=== PATIENT | female | born 1955 | race Caucasian/White ===

== ENCOUNTER → 2017-08-07 09:52 | Outpatient (CLI) | payer MEDICARE, SELFPAY ==
[2017-08-07 12:41] LABS: Anion Gap 8 (5-15); BUN 11 mg/dL (7-18); BUN/Creat Ratio 15.6 RATIO (10-20); Calcium,Total 8.6 mg/dL (8.5-10.1); Chloride 109 mmol/L (98-107); Cholesterol 168 mg/dL (200); Creatinine, Serum 0.71 mg/dL (0.55-1.02); EST Glomerular Filtration Rate 89 mL/min (>60); Est Glom Filt Rate - Afr Amer 108 mL/min (>60); Glucose 88 mg/dL (74-106); High Density Lipoprotein 55 mg/dL; Potassium 3.9 mmol/L (3.5-5.1); Sodium Level 144 mmol/L (136-145); Triglycerides 159 mg/dL; Very Low Density Lipoprotein 32 mg/dL (5-40)
== END ==
PROVIDERS: Family Provider Family Medicine; PCP Family Medicine; Visit Provider Family Medicine
DX: I10 Essential (primary) hypertension (principal)
CPT/HCPCS: 36415; 80048; 80061

== ENCOUNTER → 2018-02-09 09:40 | Outpatient (CLI) | payer MEDICARE, SELFPAY ==
[2018-02-09 12:39] LABS: Anion Gap 8 (5-15); BUN 16 mg/dL (7-18); BUN/Creat Ratio 23.7 RATIO (10-20); Calcium,Total 8.2 mg/dL (8.5-10.1); Chloride 110 mmol/L (98-107); Cholesterol 155 mg/dL (200); Creatinine, Serum 0.67 mg/dL (0.55-1.02); EST Glomerular Filtration Rate 94 mL/min (>60); Est Glom Filt Rate - Afr Amer 114 mL/min (>60); Glucose 93 mg/dL (74-106); High Density Lipoprotein 66 mg/dL; Potassium 4.1 mmol/L (3.5-5.1); Sodium Level 142 mmol/L (136-145); Triglycerides 81 mg/dL; Very Low Density Lipoprotein 16 mg/dL (5-40)
== END ==
PROVIDERS: Family Provider Family Medicine; PCP Family Medicine; Visit Provider Family Medicine
DX: I10 Essential (primary) hypertension (principal)
CPT/HCPCS: 36415; 80048; 80061

== ENCOUNTER → 2018-04-15 10:08 | Outpatient (CLI) | payer MEDICARE, SELFPAY ==
--- NOTE | 2018-04-15 10:13 | BI_ITS ---
MAMMOGRAPHY - BILATERAL SCREENING REASON FOR EXAM: Female, 62 years old. Routine annual screening examination. PERTINENT HISTORY: Non-contributory. TECHNIQUE: Digital bilateral breast sean (3D mammographic acquisition) in the CC and MLO projections. 2-D mediolateral oblique (MLO) and craniocaudad (CC) views of both breasts were obtained. CAD: Full Field Digital Mammography with Computer Added Detection was performed. COMPARISON: Comparison is made with prior study dated March 12, 2016 and March 12, 2012. FINDINGS: Breast Composition: The breasts are almost entirely fatty. There are no dominant masses or suspicious calcifications. Stable benign-appearing bilateral axillary lymph nodes. No other significant abnormalities are identified. There has been no significant change since the prior study. BI/SCREENING MAMM (CAD), BILAT IMPRESSION: Stable bilateral screening mammogram. Yearly follow-up mammogram recommended. (A) ASSESSMENT CATEGORY: BIRADS Category 2: Benign. A letter regarding these results will be sent to the patient by the facility within 30 days. Approximately 10% of breast cancers are not detected by mammography. A normal mammogram should not delay biopsy of a clinically suspicious abnormality. [id number] Electronically Signed: Charles Santillan MD at 12:13 EST , Service support ,
--- NOTE | 2018-04-15 10:17 | BD_ITS ---
STUDY: DUAL ENERGY X-RAY ABSORPTIOMETRY / DXA REASON FOR EXAM: Female, 62 years old. The patient is postmenopausal. TECHNIQUE: Bone Mineral Density (BMD) measurements of lumbar spine and bilateral hips were obtained. COMPARISON: Comparison is made with prior study dated March 12, 2016. FINDINGS: Lumbar Spine (L1-L4): g/cm2 (0.968) / T-score (-1.8) / Z-score (-0.4) Findings are suggestive of osteopenia with a moderate fracture risk. Left Femur Total: g/cm2 (0.812) / T-score (-1.6) / Z-score (-0.5) Left Femoral Neck: g/cm2 (0.746) / T-score (-2.1) / Z-score (-0.7) Right Femur Total: g/cm2 (0.886) / T-score (-1.0) / Z-score (0.1) Right Femoral Neck: g/cm2 (0.757) / T-score (-2.0) / Z-score (-0.7) The T-Scores on the most recent prior examination were: Lumbar Spine (L1-L4): There has been worsening of bone density since the previous examination. Left Femur Total: which represents a worsening of 4.7%. Right Femur Total: which represents a worsening of 1.3%. BD/Dexa Bone Density Study IMPRESSION: The patient is considered osteopenic as outlined below according to World Bradley Organization (WHO) criteria with a moderate fracture risk. There has been worsening of bone density since the previous examination. Reference Information: The T-score is the number of standard deviations above or below the standard which is normal for young adults at their peak bone mineral density. The World Health Organization (WHO) interprets the T-scores as follows: Above -1 Normal bone density Between -1 and -2.5 Osteopenia Equal to / or below -2.5 Osteoporosis As a practical clinical guideline, osteopenia may be graded as follows: Mild -1 through -1.5 Moderate -1.6 through -2.0 Severe -2.1 through -2.4 The Z-score is the number of standard deviations above or below age-matched controls. A Z-score of less than -1.5 would be considered abnormal. References: 1. NIH Osteoporosis and Related Bone Diseases http://www.osteo.org 2. International Society for Clinical Densitometry http://www.iscd.org 3. National Osteoporosis Foundation http://www.nof.org Electronically Signed: Charles Santillan MD at 12:37 EST , Service support ,
== END ==
PROVIDERS: Family Provider Family Medicine; PCP Family Medicine; Referring Provider Family Medicine; Visit Provider Family Medicine
DX: Z00.00 Encounter for general adult medical examination without abnormal findings (principal); Z12.31 Encounter for screening mammogram for malignant neoplasm of breast; Z78.0 Asymptomatic menopausal state
CPT/HCPCS: 77063; 77067; 77080

== ENCOUNTER → 2018-11-25 09:46 | Outpatient (CLI) | payer MEDICARE, SELFPAY ==
[2018-11-25 12:29] LABS: Carbamazepine (Tegretol) 8.1 ug/mL (4.0-12.0)
[2018-11-25 12:36] LABS: Anion Gap 6 (5-15); BUN 12 mg/dL (7-18); Calcium,Total 8.6 mg/dL (8.5-10.1); Chloride 109 mmol/L (98-107); Cholesterol 195 mg/dL (200); Creatinine, Serum 0.67 mg/dL (0.55-1.02); EST Glomerular Filtration Rate 95 mL/min (>60); Est Glom Filt Rate - Afr Amer 115 mL/min (>60); Glucose 95 mg/dL (74-106); High Density Lipoprotein 62 mg/dL; Potassium 3.9 mmol/L (3.5-5.1); Sodium Level 143 mmol/L (136-145); Triglycerides 218 mg/dL; Very Low Density Lipoprotein 44 mg/dL (5-40)
== END ==
PROVIDERS: Family Provider Family Medicine; PCP Family Medicine; Referring Provider Family Medicine; Visit Provider Family Medicine
DX: I10 Essential (primary) hypertension (principal); F32.9 Major depressive disorder, single episode, unspecified
CPT/HCPCS: 36415; 80048; 80061; 80156

== ENCOUNTER → 2019-12-01 09:51 | Outpatient (CLI) | payer MEDICARE, SELFPAY ==
[2019-12-01 12:36] LABS: Anion Gap 5 (5-15); BUN 15 mg/dL (7-18); BUN/Creat Ratio 20.1 RATIO (10-20); Calcium,Total 8.7 mg/dL (8.5-10.1); Chloride 107 mmol/L (98-107); Cholesterol 203 mg/dL (200); Creatinine, Serum 0.75 mg/dL (0.55-1.02); EST Glomerular Filtration Rate 83 mL/min (>60); Est Glom Filt Rate - Afr Amer 100 mL/min (>60); Glucose 99 mg/dL (74-106); High Density Lipoprotein 62 mg/dL; Potassium 3.7 mmol/L (3.5-5.1); Sodium Level 140 mmol/L (136-145); Thyroid Stim Hormone (TSH) 2.43 uIU/mL (0.358-3.74); Triglycerides 209 mg/dL; Very Low Density Lipoprotein 42 mg/dL (5-40)
[2019-12-01 12:58] LABS: Carbamazepine (Tegretol) 9.2 ug/mL (4.0-12.0)
== END ==
PROVIDERS: PCP Family Medicine; Referring Provider Family Medicine; Visit Provider Family Medicine
DX: R63.5 Abnormal weight gain (principal); I10 Essential (primary) hypertension; F32.9 Major depressive disorder, single episode, unspecified
CPT/HCPCS: 36415; 80048; 80061; 80156; 84443

== ENCOUNTER → 2020-05-31 09:25 | Outpatient (CLI) | payer MEDICARE, SELFPAY ==
[2020-05-31 11:24] LABS: Anion Gap 7 (5-15); BUN 10 mg/dL (7-18); BUN/Creat Ratio 13.9 RATIO (10-20); Calcium,Total 8.7 mg/dL (8.5-10.1); Chloride 107 mmol/L (98-107); Cholesterol 196 mg/dL (200); Creatinine, Serum 0.72 mg/dL (0.55-1.02); EST Glomerular Filtration Rate 87 mL/min (>60); Est Glom Filt Rate - Afr Amer 105 mL/min (>60); Glucose 108 mg/dL (74-106); High Density Lipoprotein 65 mg/dL; Potassium 3.7 mmol/L (3.5-5.1); Sodium Level 140 mmol/L (136-145); Triglycerides 242 mg/dL; Very Low Density Lipoprotein 48 mg/dL (5-40)
== END ==
PROVIDERS: PCP Family Medicine; Referring Provider Family Medicine; Visit Provider Family Medicine
DX: I10 Essential (primary) hypertension (principal)
CPT/HCPCS: 36415; 80048; 80061

== ENCOUNTER → 2020-05-31 13:12 | Outpatient (CLI) | payer MEDICARE, SELFPAY ==
--- NOTE | 2020-05-31 13:15 | BI_ITS ---
MAMMOGRAPHY - BILATERAL SCREENING REASON FOR EXAM: Female, 64 years old. Routine annual screening examination. PERTINENT HISTORY: Non-contributory. TECHNIQUE: Digital bilateral breast shahnaz (3D mammographic acquisition) in the CC and MLO projections. 2-D mediolateral oblique (MLO) and craniocaudad (CC) views of both breasts were obtained. CAD: Full Field Digital Mammography with Computer Added Detection was performed. COMPARISON: Comparison is made with prior study dated 04/15/2018. FINDINGS: Breast Composition: There are scattered areas of fibroglandular density. There are no dominant masses or suspicious calcifications. Stable benign-appearing bilateral axillary lymph nodes. No other significant abnormalities are identified. There has been no significant change since the prior study. BI/SCRN MAMM (CAD)W/SHAHNAZ BILAT IMPRESSION: Stable bilateral screening mammogram. Yearly follow-up mammogram recommended. (A) ASSESSMENT CATEGORY: BIRADS Category 2: Benign. A letter regarding these results will be sent to the patient by the facility within 30 days. Approximately 10% of breast cancers are not detected by mammography. A normal mammogram should not delay biopsy of a clinically suspicious abnormality. [id number] Electronically Signed: Charles Santillan MD at 14:49 EDT , Service support ,
== END ==
PROVIDERS: PCP Family Medicine; Referring Provider Family Medicine; Visit Provider Family Medicine
DX: Z12.31 Encounter for screening mammogram for malignant neoplasm of breast (principal); I10 Essential (primary) hypertension
CPT/HCPCS: 36415; 77063; 77067; 80048; 80061

== ENCOUNTER → 2020-07-24 15:59 | Outpatient (CLI) | payer MEDICARE, SELFPAY ==
--- NOTE | 2020-07-24 16:01 | RAD_ITS ---
STUDY: X-RAY - RIGHT WRIST REASON FOR EXAM: Female, 65 years old. INJURY TECHNIQUE: 3 view(s) of the wrist were obtained. COMPARISON: None. FINDINGS: Cast application. Well aligned distal radius fracture. No acute dislocation. No acute cortical destruction. Limited soft tissue evaluation. RAD/Wrist min 3 Views IMPRESSION: Casted well aligned distal radius fracture Electronically Signed: Chaim Larios DO at 9:32 EDT Tel , Service support ,
== END ==
PROVIDERS: PCP Family Medicine; Referring Provider Family Medicine; Visit Provider Family Medicine
DX: S69.91XA Unspecified injury of right wrist, hand and finger(s), initial encounter (principal)
CPT/HCPCS: 73110

== ENCOUNTER → 2020-08-09 09:17 | Outpatient (CLI) | payer MEDICARE, SELFPAY ==
--- NOTE | 2020-08-09 09:21 | RAD_ITS ---
STUDY: X-RAY - RIGHT WRIST REASON FOR EXAM: Female, 65 years old. RIGHT WRIST INJURY, FOLLOW UP FX TECHNIQUE: 3 view(s) of the wrist were obtained. COMPARISON: None. FINDINGS: Increased impaction of the transverse fracture of the distal metaphysis of the radius and clinical correlation is recommended. Normal radiocarpal articulation. Normal distal radioulnar articulation. Normal carpal bones. Normal carpal articulations. Normal carpometacarpal articulation of the thumb. Normal second through fifth carpometacarpal articulations. Normal visualized metacarpal bones. Fiberglas cast obscures soft tissue and bony detail. RAD/Wrist min 3 Views IMPRESSION: Increased impaction of the transverse fracture the distal metaphysis of the radius and clinical correlation is recommended. Electronically Signed: Tello José MD at 7:50 EDT Tel , Service support ,
== END ==
PROVIDERS: PCP Family Medicine; Referring Provider Family Medicine; Visit Provider Family Medicine
DX: S69.91XA Unspecified injury of right wrist, hand and finger(s), initial encounter (principal)
CPT/HCPCS: 73110

== ENCOUNTER → 2020-11-29 10:30 | Outpatient (CLI) | payer MEDICARE, SELFPAY ==
[2020-11-29 12:35] LABS: Anion Gap 5 (5-15); BUN 12 mg/dL (7-18); BUN/Creat Ratio 16.9 RATIO (10-20); Calcium,Total 8.6 mg/dL (8.5-10.1); Chloride 108 mmol/L (98-107); Cholesterol 172 mg/dL (200); Creatinine, Serum 0.71 mg/dL (0.55-1.02); EST Glomerular Filtration Rate 88 mL/min (>60); Est Glom Filt Rate - Afr Amer 106 mL/min (>60); Glucose 97 mg/dL (74-106); High Density Lipoprotein 68 mg/dL; Potassium 4.1 mmol/L (3.5-5.1); Sodium Level 140 mmol/L (136-145); Triglycerides 118 mg/dL; Very Low Density Lipoprotein 24 mg/dL (5-40)
[2020-11-29 12:36] LABS: Carbamazepine (Tegretol) 9.4 ug/mL (4.0-12.0)
== END ==
PROVIDERS: PCP Family Medicine; Referring Provider Family Medicine; Visit Provider Family Medicine
DX: I10 Essential (primary) hypertension (principal); F31.9 Bipolar disorder, unspecified
CPT/HCPCS: 36415; 80048; 80061; 80156

== ENCOUNTER → 2020-12-27 | Outpatient (CLI) | payer MEDICARE, SELFPAY | END | disposition home or self-care (01) | LOC: LABSPEC 16:22 | PROVIDERS: PCP Family Medicine; Referring Provider Family Medicine; Visit Provider Family Medicine | DX: Z20.822 Contact with and (suspected) exposure to COVID-19 (principal) | CPT/HCPCS: 87635; U0005; U0003 ==

== ENCOUNTER 2021-02-09 12:30 | Outpatient (RCR) | payer MEDICARE, SELFPAY ==
--- NOTE | 2020-09-13 13:41 | HP.OTEVAL_ITS ---
Patient's Visit Information LEILANI CHILEL is a 65 year old F, referred to Occupational Therapy by Dr. Roger Barahona MD, with a diagnosis of distal radial fracture. Date of Evaluation: 09/13/20 Occupational Therapist: Jemma Cervantes, TIFFANIE/Rosario, CHT - Subjective This 65/F was seen today for an OT initial eval after a distal radius fx. She arrived with her wearing a black splint. Pt reported that she fell while on vacation on 07/16/20, and was casted until 08/30/20. She reported pain when she leaned on her elbow and doing certain everyday movements. After removing the splint, the pt pointed out the swelling in her hand and how it has gotten worse since getting the cast off. She - ADLs Eating: Use silverware, Cut food Grooming: Trim nails, Squeeze toothpaste on Kitchen: Chop with knife, Peel fruits & vegetables, Open jars, Ziplock bags, Lift gallon of milk - Pain R wrist 3 Pain Intensity Range: 3, 6 - ROM Forearm: Right sup/pro neutral/WFL Left WFL/WFL Wrist: Right 15*/35* Left 60*/40* MP: Right: 30* IF, 40* MF, 35* RF, 30* LF. Left: 75* IF, 80* MF, 80* RF, 80* LF PIP: Right: 65* IF, 70* MF, 68* RF, 64* LF. Left: 70* IF, 70* MF, 70* RF, 70* LF DIP: Right: 20* IF, 25* MF, 20* RF, 18* LF. Left: 30* IF, 35* MF, 35* RF, 30* LF ROM Comments: Pt was unable to oppose thumb to RF and LF. - Strength Rubber Goods Cutter Finisher: Right: unable, Left: 50# Lateral Pinch: Right: unable, Left: 18# Tripod Pinch: Right: unable, Left: 20# - Edema Wrist: Right: 7.75 in, Left: 7 in PIP: Right MF: 7 in, Left MF: 6 in - Quick DASH-Disab of Arm,Shoulder& Hand Quick DASH Score: 79.5450 - Goals Goal:: In 8 weeks, pt will demonstrate an increase in L grocery packer strength by 35# or greater to return to independence in ADLs and IADLs. In 8 weeks, pt will demonstrate an increase in L pinch strength by 10# or greater to return to independence in ADLs and IADLS. Goal:: pt will demonstrate an increase in R wrist ext/flex by 40*/5* by d/c to be more independent in cooking and cleaning tasks. pt will demonstrate an increase in R wrist supination by at least 60* to be able to receive change by d/c. pt will demonstrate a tight composite fist in R hand to increase independent in ADLs and IADLs by d/c. Goal:: pt will self-report pain 0/10 with use, and 0/10 during the night by d/c. Goal:: pt will demonstrate a decrease in edema in her R palm, wrist, and fingers to measure equal to her L hand to increase ROM by d/c. Goal:: pt will self-report no tingling in her R hand with use by d/c. - Rehabilitation General Assessment: Pt demonstrated limited ROM in her right wrist with cha/pron and flex/ext, and was unable to perform a grocery packer/pinch test due to pain. Pt would demonstrate skilled OT services 2-3x a week 8 weeks to decrease swelling, pain, and increase ROM to be more independence in ADLs and IADLs. Today, therapist took ROM measurements, edema measurements, and grocery packer/pinch strength of her L hand. Therapist also performed trigger point release to promote soft tissue mobility and decrease swelling.Therapy session was directly supervised and doc. approved by Jemma Cervantes OTR/Rosario, CHT. Rehabilitation Potential: Good - Anticipated Interventions A/AAROM/PROM, Strengthening, Edema Control, Triggerpoint Release, Modalities, ADL Training, Home Program - Visit Plan Frequency: 2-3x /Week Duration: 2 Months General Plan: AROM/PROM. Swelling control. ADL training. TEXT: Thank you for the opportunity to evaluate your patient. For Medicare and Medicare HMO plans, please review the plan of care and approve it. It will need to be FAXED BACK to us at [phone] for Medicare purposes. Please let me know if there are questions or concerns regarding this plan of care. Physician Signature: Date:
--- NOTE | 2020-10-03 16:06 | HP.OTREVAL ---
Dr. Roger Barahona MD, It has been my pleasure to treat LEILANI CHILEL over the last 6 visits for distal radial fracture. Please see the progress note below for an update on the occupational therapy plan of care! Subjective: Pt arrived wearing edema glove and brace. Objective/Function: Prior to session: 50. After: . Pt has made gains with her ROM and pain has decreased. pt has initiated using her UE more but pts weakness is limiting her. pt would benefit from further skilled OT services 2x week for 4 weeks Plan Frequency: 2-3x /Week Duration: 4 Weeks Plan: pt to continue with ROM. therapy has initiated strengthening of composition professor and pinch strength- pt is finn. well but continues to struggle with full tight composite fist. cont. with BTE for composition professor and pinch strength -add in UB with free wts Goals - Goals Patient Goals: Regain Mobility, Regain Strength, Decrease Pain, Decrease Swelling/Stiffness, Increase ROM, Be More Independent in ADLS, Resume Hobbies Goal:: In 8 weeks, pt will demonstrate an increase in L composition professor strength by 35# or greater to return to independence in ADLs and IADLs. making gains pt is at 15#. In 8 weeks, pt will demonstrate an increase in L pinch strength by 10# or greater to return to independence in ADLs and IADLS. Goal:: pt will demonstrate an increase in R wrist ext/flex by 40*/5* by d/c to be more independent in cooking and cleaning tasks. pt will demonstrate an increase in R wrist supination by at least 60* to be able to receive change by d/c. pt will demonstrate a tight composite fist in R hand to increase independent in ADLs and IADLs by d/c. Goal:: pt will self-report pain 0/10 with use, and 0/10 during the night by d/c. Goal:: pt will demonstrate a decrease in edema in her R palm, wrist, and fingers to measure equal to her L hand to increase ROM by d/c. Goal:: pt will self-report no tingling in her R hand with use by d/c. Anticipated Interventions Anticipated Interventions: A/AAROM/PROM, Strengthening, Edema Control, Triggerpoint Release, Modalities, ADL Training, Home Program Please do not hesitate to contact me at [phone] by phone or if you have questions or concerns regarding this new plan of care! Sincerely, Jemma Cervantes, OTR/L, CHT
--- NOTE | 2020-10-10 12:01 | HP.OTREVAL ---
Dr. Roger Barahona MD, It has been my pleasure to treat LEILANI CHILEL over the last 7 visits for distal radial fracture. Please see the progress note below for an update on the occupational therapy plan of care! Subjective: pt arrived wearing brace, stating that she is stiff this morning. She still is experiencing pain when she is going grocery shopping. She is able to manipulate a knife for meal prep and to eat. Objective/Function: Therapist remeasured: support services coordinator: unable. Lateral pinch: 5# (unable at eval). 3-jaw pinch: 2# (unable at eval). wrist ROM: 57*/65* (was 57*/55* last session). Edema in wrist: 6.5 inches (was 7.75 at eval). edema in PIP MF: 7 inches (was 7 inches at eval). Pt was able to oppose thumb to all fingers even with stiffness this morning. Pt still experiencing pain with use, and uses her brace for heavy activities. Plan Frequency: 2-3x /Week Duration: 4 Weeks Plan: pt to continue with ROM. therapy has initiated strengthening of support services coordinator and pinch strength- pt is finn. well but continues to struggle with full tight composite fist. cont. with BTE for support services coordinator and pinch strength -add in UB with free wts. pt would benefit from continue skilled OT services 2x week for 6 weeks to increase pts ind. with ADLs and IADLs Goals - Goals Patient Goals: Regain Mobility, Regain Strength, Decrease Pain, Decrease Swelling/Stiffness, Increase ROM, Be More Independent in ADLS, Resume Hobbies Goal:: In 8 weeks, pt will demonstrate an increase in L support services coordinator strength by 35# or greater to return to independence in ADLs and IADLs. making gains pt is at 15#. In 8 weeks, pt will demonstrate an increase in L pinch strength by 10# or greater to return to independence in ADLs and IADLS. Goal:: pt will demonstrate an increase in R wrist ext/flex by 40*/5* by d/c to be more independent in cooking and cleaning tasks. pt will demonstrate an increase in R wrist supination by at least 60* to be able to receive change by d/c. pt will demonstrate a tight composite fist in R hand to increase independent in ADLs and IADLs by d/c. Goal:: pt will self-report pain 0/10 with use, and 0/10 during the night by d/c. Goal:: pt will demonstrate a decrease in edema in her R palm, wrist, and fingers to measure equal to her L hand to increase ROM by d/c. Goal:: pt will self-report no tingling in her R hand with use by d/c. Anticipated Interventions Anticipated Interventions: A/AAROM/PROM, Strengthening, Edema Control, Triggerpoint Release, Modalities, ADL Training, Home Program Please do not hesitate to contact me at [phone] by phone or if you have questions or concerns regarding this new plan of care! Sincerely, Jemma Cervantes, OTR/L, CHT
--- NOTE | 2020-11-08 15:14 | HP.OTREVAL ---
Dr. Roger Barahona MD, It has been my pleasure to treat LEILANI CHILEL over the last 7 visits for distal radial fracture. Please see the progress note below for an update on the occupational therapy plan of care! Subjective: pt arrived wearing brace, stating that she is stiff this morning. She still is experiencing pain when she is going grocery shopping. She is able to manipulate a knife for meal prep and to eat. Objective/Function: Therapist remeasured: shale planer operator strength: unable due to pain. Lateral pinch: 5# (unable at eval). 3-jaw pinch: 2# (unable at eval). wrist ROM: 57*/65* (was 57*/55* last session). Edema in wrist: 6.5 inches (was 7.75 at eval). edema in PIP MF: 7 inches (was 7 inches at eval). Pt was able to oppose thumb to all fingers even with stiffness this morning. Pt still experiencing pain with use, and uses her brace for heavy activities. pt would benefit from further skilled OT services to increase pts strength to return to ADLs and IADLs. pain mtg. Plan Frequency: 2-3x /Week Duration: 4 Weeks Plan: pt to continue with ROM. therapy has initiated strengthening of shale planer operator and pinch strength- pt is finn. well but continues to struggle with full tight composite fist. cont. with BTE for shale planer operator and pinch strength -add in UB with free wts. pt would benefit from continue skilled OT services 2x week for 6 weeks to increase pts ind. with ADLs and IADLs Goals - Goals Patient Goals: Regain Mobility, Regain Strength, Decrease Pain, Decrease Swelling/Stiffness, Increase ROM, Be More Independent in ADLS, Resume Hobbies Goal:: In 8 weeks, pt will demonstrate an increase in L shale planer operator strength by 35# or greater to return to independence in ADLs and IADLs. making gains pt is at 15#. In 8 weeks, pt will demonstrate an increase in L pinch strength by 10# or greater to return to independence in ADLs and IADLS. Goal:: pt will demonstrate an increase in R wrist ext/flex by 40*/5* by d/c to be more independent in cooking and cleaning tasks. pt will demonstrate an increase in R wrist supination by at least 60* to be able to receive change by d/c. pt will demonstrate a tight composite fist in R hand to increase independent in ADLs and IADLs by d/c. Goal:: pt will self-report pain 0/10 with use, and 0/10 during the night by d/c. Goal:: pt will demonstrate a decrease in edema in her R palm, wrist, and fingers to measure equal to her L hand to increase ROM by d/c. Goal:: pt will self-report no tingling in her R hand with use by d/c. Anticipated Interventions Anticipated Interventions: A/AAROM/PROM, Strengthening, Edema Control, Triggerpoint Release, Modalities, ADL Training, Home Program Please do not hesitate to contact me at [phone] by phone or if you have questions or concerns regarding this new plan of care! Sincerely, Jemma Cervantes, OTR/L, CHT
--- NOTE | 2020-12-04 11:37 | HP.OTREVAL ---
Dr. Roger Barahona MD, It has been my pleasure to treat LEILANI CHILEL over the last 5 visits for distal radial fracture. Please see the progress note below for an update on the occupational therapy plan of care! Subjective: pt arrives states she will see the doc. this wed. for her right shoulder pain and get results from her MRI- pt states her right hand is getting better- states she is able to open jars, and cut veggies, as well as laundry -. pt states scrubby dishes is getting easier- pt reports 80% improvement. Objective/Function: wrist flex 65/25. right primer expeditor and drier 15#. right lateral pinch 2#. right tripod pinch 3#. pt continues to struggle in getting more primer expeditor and drier strength but also admits she is not doing her t-putty exercises often. Pt state she will try to do them more- Plan Plan: cont with increase use of right primer expeditor and drier/pinch. add free wts for PRE Goals - Goals Patient Goals: Regain Mobility, Regain Strength, Decrease Pain, Decrease Swelling/Stiffness, Increase ROM, Be More Independent in ADLS, Resume Hobbies Goal:: In 8 weeks, pt will demonstrate an increase in L primer expeditor and drier strength by 35# or greater to return to independence in ADLs and IADLs. making gains pt is at 15#. In 8 weeks, pt will demonstrate an increase in L pinch strength by 10# or greater to return to independence in ADLs and IADLS. Goal:: pt will demonstrate an increase in R wrist ext/flex by 40*/5* by d/c to be more independent in cooking and cleaning tasks. pt will demonstrate an increase in R wrist supination by at least 60* to be able to receive change by d/c. pt will demonstrate a tight composite fist in R hand to increase independent in ADLs and IADLs by d/c. Goal:: pt will self-report pain 0/10 with use, and 0/10 during the night by d/c. Goal:: pt will demonstrate a decrease in edema in her R palm, wrist, and fingers to measure equal to her L hand to increase ROM by d/c. Goal:: pt will self-report no tingling in her R hand with use by d/c. Anticipated Interventions Anticipated Interventions: A/AAROM/PROM, Strengthening, Edema Control, Triggerpoint Release, Modalities, ADL Training, Home Program Please do not hesitate to contact me at [phone] by phone or if you have questions or concerns regarding this new plan of care! Sincerely, Jemma Cervantes OTR/L, CHT
--- NOTE | 2020-12-18 15:19 | HP.PTEVAL_ITS ---
Patient's Visit Information LEILANI CHILEL is a 65 year old F referred to Physical Therapy by Dr. Roger Barahona MD with a diagnosis of R shoulder pain, Bursitis of R shoulder, R superior glenoid labral lesion. Date of Evaluation: 12/18/20 Physical Therapist: Caren Javier - Visit Plan Frequency: 2x /Week Duration: 4 Weeks Plan: Pt to begin skilled physical therapy program to increase shoulder ROM and strength and decrease pain. Begin with gentle ROM exercises and progress to strengthening as per tolerance. - Subjective Pt broke R wrist 07/16/2020 while on vacation in [place], wrist was set and casted there. Upon [place], doctor [place]. Pt had intense pain afterwards. Xrays 5 days later showed bones had shifted. Had cast for 6 wks. Went through OT for wrist when shoulder pain began. Is currently on hold for OT due to in surance. Pain began from elbow up to shoulder as she increased activity as wrist healed. Had cortisone shot in shoulder end of November that started to help after about 3 days. Pt has tried ice, heat, and Tylenol. She is unable to sleep on her R shoulder and has difficulty donning/doffing clothing and any motion that involves IR/ER. Pt is right handed. PAIN: Currently, at rest 0/10. worst: 7/10 with sudden movements, especially IR/ER - Pain front of shoulder Pain Intensity (Out of 10): 0 Pain Intensity Range: 0, 7 - Objective Pt is right handed. Posture unremarkable. ROM: Tested in supine: R shoulder flexion PROM is full with pain at EROM. AROM lacks ~10 degrees, 50 degrees ER; 65 degrees IR, abduction 90 degrees, otherwise pt starts to compensate with shoulder hike. Crepitus felt in shoulder with movement. L shoulder AROM is WNL. Elbow is WNL. R wrist ROM is still limited due to break. MMT: Shoulder flexion: 4/5 bilaterally. Left IR/ER 4/5; Right IR/ER: 3+/5, L otherwise grossly 4/5. Pain with resistance on R. Elbow F/E: 4/5 bilaterally, no pain. Pt performed arm bike for 2 min 30 sec each direction without c/o increase in symptoms. - Balance/Special Test Scores Quick DASH Score: 61.3625 - Goals Goal 1:: Pt to be independent with HEP Goal Time Frame: 2-4 Weeks Goal 2:: STG: Pt to increase ER of R shoulder to 90 degrees to allow for i ncreased independence with ADLs Goal Time Frame: 2-4 Weeks Goal 3:: Pt to report ability to don/doff clothing without assistance or difficulty, indicated increased function of R shoulder. Goal Time Frame: 4-6 Weeks Goal 4:: LTG: Pt to demonstrate full and pain free AROM of R shoulder to allow for return to daily activities and responsibilities. Goal Time Frame: 4-6 Weeks - Rehabilitation Potential Physical Therapy Diagnosis: Patient presents with s/s consistent with R shoulder pain, likely secondary to wrist injury earlier this spring. Pt demonstrated decreased participation in ADLs and extracurriculars as a result of decreased ROM, strength, and increased pain with movement. Pt would benefit from skilled physical therapy services in order to monitor/progress rehab program as tolerated. Rehabilitation Potential: Good - Anticipated Interventions Patient/Client Instruction: Educate patient on: Condition Therapeutic Exercise to Include: Strength training, Passive ROM, Active ROM For the Purpose of:: To decrease pain, To increase ROM, To improve ability to perform ADL's Manual Therapy Techniques to Include: Mobilization Comment: as indicated Thank you for the opportunity to evaluate your patient. For Medicare and Medicare HMO plans, please review the plan of care and approve it. It will need to be FAXED BACK to us at [phone] for Medicare purposes. For Medicare only, by signing this I certify the plan of care. Please let me know if there are questions or concerns regarding this plan of care. Physician Signature: Date:
--- NOTE | 2021-01-15 11:52 | HP.PTREVAL ---
Dr. Roger Barahona MD, It has been my pleasure to treat LEILANI CHILEL over the last 10 visits for R shoulder pain, Bursitis of R shoulder, R superior glenoid labral lesion. Please see the progress note below for an update on the physical therapy plan of care! Subjective: Pt did not sleep well last night, but reports that she feels she is improving with her ROM as long as she does things cautiously/carefully. Objective/Function: Reviewed goals with patient, gave Quick DASH for assessment of progress. Pt is making gains in ROM and decreased pain with functional activities. Pt still lacks at least 45 degrees of AROM ER of L shoulder. Pt would still benefit from continued skilled physical therapy to facilitate further improvements to return to pain free functional tasks. Plan Plan: Increase shoulder ROM and strength and decrease pain. Begin with gentle ROM exercises and progress to strengthening as per tolerance. Balance/Gait/Functional tests - Balance/Special Test Scores Quick DASH Score: 27.2725 Goals Goal 1:: Pt to be independent with HEP Goal Time Frame: 2-4 Weeks Goal Progress: Goal Met Goal 2:: STG: Pt to increase ER of R shoulder to 90 degrees to allow for increased independence with ADLs Goal Time Frame: 2-4 Weeks Goal Progress: Progressing Goal 3:: Pt to report ability to don/doff clothing without assistance or difficulty, indicated increased function of R shoulder. Goal Time Frame: 4-6 Weeks Goal Progress: Progressing Goal 4:: LTG: Pt to demonstrate full and pain free AROM of R shoulder to allow for return to daily activities and responsibilities. Goal Time Frame: 4-6 Weeks Goal Progress: Progressing Anticipated Interventions Patient/Client Instruction: Educate patient on: Condition Therapeutic Exercise to Include: Strength training, Passive ROM, Active ROM For the Purpose of:: To decrease pain, To increase ROM, To improve ability to perform ADL's Manual Therapy Techniques to Include: Mobilization Comment: as indicated Please do not hesitate to contact me at [phone] by phone or if you have questions or concerns regarding this new plan of care! Sincerely, Caren Javier
--- NOTE | 2021-02-12 11:00 | HP.PTREVAL_ITS ---
Dr. Roger Barahona MD, It has been my pleasure to treat LEILANI CHILEL over the last 15 visits for R shoulder pain, Bursitis of R shoulder, R superior glenoid labral lesion. Please see the progress note below for an update on the physical therapy plan of care! Subjective: Pt. reports overall doing better. She is to see physician in ~2 weeks. pt. reports having improved ROM and is getting better with her ADLs. She is still having some trouble with lifting and with reaching out while holding household items. Pt. reports ebing 65% better overall. Objective/Function: ROM: Pt. has close to full ROM of her R shoulder. She does have a painful arch with flexion and abduction. MMT: 4+/5 throughout, except flexion 4/5, adb 4/5. Mild increase in symptoms. Pt. is independent with her current HEP with focus on deltoid and RTC stability/strengthening exercises. She is back to doing all of her ADLs and most IADLs with mild symptoms. She is to follow up with physician in ~10-14 days. Plan Plan: I would like her to work on her HEP for 10-14 days until seeing surgeon. If she is doing well then continue with this. If not or if surgeon wants to continue PT, I will requrest more visits as that point in time if needed. Balance/Gait/Functional tests - Balance/Special Test Scores Quick DASH Score: 18.1800 Goals Goal 1:: Pt to be independent with HEP Goal Time Frame: 2-4 Weeks Goal Progress: Goal Met Goal 2:: STG: Pt to increase ER of R shoulder to 90 degrees to allow for increased independence with ADLs Goal Time Frame: 2-4 Weeks Goal Progress: Goal Met Goal 3:: Pt to report ability to don/doff clothing without assistance or dif ficulty, indicated increased function of R shoulder. Goal Time Frame: 4-6 Weeks Goal Progress: Goal Met Goal 4:: LTG: Pt to demonstrate full and pain free AROM of R shoulder to allow for return to daily activities and responsibilities. Goal Time Frame: 4-6 Weeks Goal Progress: Progressing Goal 5:: LTG: Pt. to have increased R shoulder and RTC strength to 5/5 throughout. Goal Time Frame: 4-6 Weeks Goal Progress: Progressing Anticipated Interventions Patient/Client Instruction: Educate patient on: Condition For the Purpose of:: To facilitate caregiver knowledge, To improve self management, To prevent re-injury, To improve ability to perform tasks related to life management, To improve tolerance to ADL's Therapeutic Exercise to Include: Strength training, Passive ROM, Active ROM For the Purpose of:: To decrease pain, To increase ROM, To improve ability to perform ADL's Manual Therapy Techniques to Include: Mobilization Comment: as indicated Please do not hesitate to contact me at [phone] by phone or if you have questions or concerns regarding this new plan of care! Sincerely, SARA WalkerT
--- NOTE | 2021-04-02 10:19 | HP.PTDCSUM ---
It has been my pleasure to treat LEILANI CHILEL referred by Dr. Roger Barahona MD, with the diagnosis of R shoulder pain, Bursitis of R shoulder, R superior glenoid labral lesion for a total of 15 visit(s). Discharge Date: Please see the following information for a summary of their discharge status. Subjective: Pt. reports overall doing better. She is to see physician in ~2 weeks. pt. reports having improved ROM and is getting better with her ADLs. She is still having some trouble with lifting and with reaching out while holding household items. Pt. reports ebing 65% better overall. front of shoulder Pain Intensity (Out of 10): 0 Right shldr Pain Intensity (Out of 10): 1 % Improvement: 65 Objective/Function: ROM: Pt. has close to full ROM of her R shoulder. She does have a painful arch with flexion and abduction. MMT: 4+/5 throughout, except flexion 4/5, adb 4/5. Mild increase in symptoms. Pt. is independent with her current HEP with focus on deltoid and RTC stability/strengthening exercises. She is back to doing all of her ADLs and most IADLs with mild symptoms. She is to follow up with physician in ~10-14 days. Goal 1:: Pt to be independent with HEP Goal Progress: Goal Met Goal 2:: STG: Pt to increase ER of R shoulder to 90 degrees to allow for increased independence with ADLs Goal Progress: Goal Met Goal 3:: Pt to report ability to don/doff clothing without assistance or difficulty, indicated increased function of R shoulder. Goal Progress: Goal Met Goal 4:: LTG: Pt to demonstrate full and pain free AROM of R shoulder to allow for return to daily activities and responsibilities. Goal Progress: Progressing Goal 5:: LTG: Pt. to have increased R shoulder and RTC strength to 5/5 throughout. Goal Progress: Progressing Plan: I would like her to work on her HEP for 10-14 days until seeing surgeon. If she is doing well then continue with this. If not or if surgeon wants to continue PT, I will requrest more visits as that point in time if needed. If there are questions or concerns regarding this patient's physical therapy, please feel free to call me at [phone]. Thank you for the referral of this patient. Sincerely, Chaim Lorenzo, DPT, OCS, CSCS Balance/Gait/Functional tests - Balance/Special Test Scores Quick DASH Score: 18.1800
== END 2021-02-09 19:00 | disposition home or self-care (01) ==
LOC: PT 12:30
PROVIDERS: PCP Family Medicine; Referring Provider Orthopaedic Surgery; Visit Provider Orthopaedic Surgery
DX: S52.551D Other extraarticular fracture of lower end of right radius, subsequent encounter for closed fracture with routine healing (principal)
CPT/HCPCS: 97110; 97140; 97161; 97164; 97166; 97530

== ENCOUNTER → 2021-03-15 | Outpatient (CLI) | payer MEDICARE, SELFPAY | END | disposition home or self-care (01) | PROVIDERS: PCP Family Medicine; Visit Provider Family Medicine | DX: U07.1 COVID-19 (principal) | CPT/HCPCS: 87635; U0003; U0005 ==

== ENCOUNTER 2021-05-30 10:31 | Outpatient (CLI) | payer MEDICARE, SELFPAY ==
[2021-05-30 12:39] LABS: Anion Gap 6 (5-15); BUN 12 mg/dL (7-18); BUN/Creat Ratio 16.5 RATIO (10-20); Chloride 107 mmol/L (98-107); Cholesterol 184 mg/dL (200); Creatinine, Serum 0.73 mg/dL (0.55-1.02); EST Glomerular Filtration Rate 85 mL/min (>60); Est Glom Filt Rate - Afr Amer 103 mL/min (>60); Glucose 104 mg/dL (74-106); High Density Lipoprotein 77 mg/dL; Potassium 4.2 mmol/L (3.5-5.1); Sodium Level 140 mmol/L (136-145); Triglycerides 114 mg/dL; Very Low Density Lipoprotein 23 mg/dL (5-40)
== END 2021-05-30 23:59 | disposition home or self-care (01) ==
LOC: MFPLAB 10:35
PROVIDERS: PCP Family Medicine; Referring Provider Family Medicine; Visit Provider Family Medicine
DX: I10 Essential (primary) hypertension (principal)
CPT/HCPCS: 36415; 80048; 80061

== ENCOUNTER → 2021-11-29 | Outpatient (CLI) | payer MEDICARE, SELFPAY ==
[2021-11-29 13:10] LABS: Anion Gap 6 (5-15); BUN 11 mg/dL (7-18); BUN/Creat Ratio 17.3 RATIO (10-20); Calcium,Total 8.8 mg/dL (8.5-10.1); Chloride 108 mmol/L (98-107); Cholesterol 197 mg/dL (200); Creatinine, Serum 0.64 mg/dL (0.55-1.02); EST Glomerular Filtration Rate 99 mL/min (>60); Est Glom Filt Rate - Afr Amer 120 mL/min (>60); Glucose 90 mg/dL (74-106); High Density Lipoprotein 83 mg/dL; Potassium 3.9 mmol/L (3.5-5.1); Sodium Level 142 mmol/L (136-145); Triglycerides 113 mg/dL; Very Low Density Lipoprotein 23 mg/dL (5-40)
== END | disposition home or self-care (01) ==
LOC: MFPLAB 10:08
PROVIDERS: PCP Family Medicine; Referring Provider Family Medicine; Visit Provider Family Medicine
DX: I10 Essential (primary) hypertension (principal)
CPT/HCPCS: 36415; 80048; 80061

== ENCOUNTER 2022-02-08 06:17 | Outpatient (CLI) | payer MEDICARE, SELFPAY ==
--- NOTE | 2022-02-08 06:45 | MRI_ITS ---
STUDY: MRI LEFT KNEE REASON FOR EXAM: Female, 66 years old. Left knee pain TECHNIQUE: Standardized fat and water weighted pulse sequences were obtained in all 3 orthogonal planes. COMPARISON: X-ray September 26, 2021. FINDINGS: Normal medial meniscus. Normal hyaline cartilage of the medial femorotibial compartment. Normal medial femoral condyle and tibial plateau. Normal medial collateral ligamentous complex (MCL). Normal distal semimembranosus, gracilis and semitendinosus tendons. There is a lateral meniscus tear of the anterior horn, a series 3 images through . There is diffuse, greater than 50% thickness articular cartilage loss of the lateral femorotibial compartment. Normal lateral femoral condyle and tibial plateau. Normal proximal tibiofibular articulation. Normal lateral collateral (fibular) ligament. Normal popliteus tendon. Normal biceps femoris tendon. Normal anterior cruciate ligament (ACL). Normal posterior cruciate ligament (PCL). Normal congruent patellofemoral articulation. Normal hyaline cartilage of the patellofemoral compartment. Normal medial and lateral patellar retinaculum. Normal quadriceps tendon. Normal patellar tendon. Normal Hoffa''s fat pad. There is a moderate volume joint effusion. There is a 3.0 cm popliteal cyst with 0.8 cm diminished signal loose body. The soft tissues are unremarkable. The otherwise visualized osseous structures are unremarkable. MRI/Lower Ext Joint Only (Routine) IMPRESSION: Lateral meniscus tear. Thinning of the cartilage of the lateral compartment. Joint effusion with popliteal cyst containing loose body. Electronically Signed: Catarino Duran MD at 8:48 EST ,
== END 2022-02-08 23:59 | disposition home or self-care (01) ==
LOC: MRI 06:19
PROVIDERS: PCP Family Medicine; Visit Provider Family Medicine
DX: M25.562 Pain in left knee (principal)
CPT/HCPCS: 73721

== ENCOUNTER → 2022-06-06 | Outpatient (CLI) | payer MEDICARE, SELFPAY ==
[2022-06-06 11:25] LABS: Hematocrit 41.2 % (37-47); Hemoglobin 13.6 g/dL (12.0-15.0); Mean Corpuscular Hgb 29.8 pg (27.0-32.0); Mean Corpuscular Volume 90.4 fL (81-99); Mean Platelet Vol. 9.6 fl (6.2-12.0); Platelet Count 293 K/mm3 (150-450); RBC Distribution Width CV 12.7 % (11.6-14.6); RBC Distribution Width SD 41.5 fl (35.1-43.9); Red Blood Count 4.56 M/mm3 (4.2-5.4); White Blood Count 3.4 K/mm3 (4.4-11.0)
[2022-06-06 11:39] LABS: Anion Gap 5 (5-15); BUN 13 mg/dL (7-18); BUN/Creat Ratio 17.4 RATIO (10-20); Calcium,Total 9.2 mg/dL (8.5-10.1); Chloride 108 mmol/L (98-107); Creatinine, Serum 0.74 mg/dL (0.55-1.02); EST Glomerular Filtration Rate 83 mL/min (>60); Est Glom Filt Rate - Afr Amer 100 mL/min (>60); Glucose 85 mg/dL (74-106); Sodium Level 143 mmol/L (136-145)
== END | disposition home or self-care (01) ==
PROVIDERS: PCP Family Medicine; Referring Provider Physician Assistant; Visit Provider Physician Assistant
DX: Z01.818 Encounter for other preprocedural examination (principal); Z01.810 Encounter for preprocedural cardiovascular examination
CPT/HCPCS: 36415; 80048; 85027; 93005

== ENCOUNTER → 2022-09-05 | Outpatient (CLI) | payer MEDICARE, SELFPAY ==
[2022-09-05 12:46] LABS: Anion Gap 5 (5-15); BUN 13 mg/dL (7-18); BUN/Creat Ratio 21.2 RATIO (10-20); Calcium,Total 8.8 mg/dL (8.5-10.1); Chloride 109 mmol/L (98-107); Cholesterol 193 mg/dL (200); Creatinine, Serum 0.61 mg/dL (0.55-1.02); EST Glomerular Filtration Rate 103 mL/min (>60); Est Glom Filt Rate - Afr Amer 125 mL/min (>60); Glucose 94 mg/dL (74-106); High Density Lipoprotein 81 mg/dL; Sodium Level 141 mmol/L (136-145); Triglycerides 117 mg/dL; Very Low Density Lipoprotein 23 mg/dL (5-40)
== END | disposition home or self-care (01) ==
LOC: MFPLAB 10:44
PROVIDERS: PCP Family Medicine; Visit Provider Family Medicine
DX: Z00.00 Encounter for general adult medical examination without abnormal findings (principal); Z13.6 Encounter for screening for cardiovascular disorders
CPT/HCPCS: 36415; 80048; 80061

== ENCOUNTER → 2023-02-20 | Outpatient (CLI) | payer MEDICARE, SELFPAY ==
--- NOTE | 2023-02-20 12:33 | BI_ITS ---
MAMMOGRAPHY - BILATERAL SCREENING REASON FOR EXAM: Female, 67 years old. Routine annual screening examination. PERTINENT HISTORY: Non-contributory. TECHNIQUE: Digital bilateral breast shahnaz (3D mammographic acquisition) in the CC and MLO projections. 2-D mediolateral oblique (MLO) and craniocaudad (CC) views of both breasts were obtained. CAD: Full Field Digital Mammography with Computer Added Detection was performed. COMPARISON: Comparison is made with prior study dated May 31, 2020 and April 15, 2018. FINDINGS: Breast Composition: The breasts are almost entirely fatty. There are no dominant masses or suspicious calcifications. Stable small fat-containing bilateral axillary lymph nodes. No other significant abnormalities are identified. There has been no significant change since the prior study. BI/SCRN MAMM (CAD)W/SHAHNAZ BILAT IMPRESSION: Stable bilateral screening mammogram. Yearly follow-up mammogram recommended. (A) ASSESSMENT CATEGORY: BIRADS Category 2: Benign. A letter regarding these results will be sent to the patient by the facility within 30 days. Approximately 10% of breast cancers are not detected by mammography. A normal mammogram should not delay biopsy of a clinically suspicious abnormality. [id number] Electronically Signed: Charles Santillan MD at 14:02 EST ,
--- NOTE | 2023-02-20 12:44 | BD_ITS ---
STUDY: DUAL ENERGY X-RAY ABSORPTIOMETRY / DXA REASON FOR EXAM: Female, 67 years old. [id number] TECHNIQUE: Bone Mineral Density (BMD) measurements of lumbar spine and bilateral hips were obtained. COMPARISON: Comparison is made with prior study dated April 15, 2018 FINDINGS: Lumbar Spine (L1-L4): g/cm2 (0.786) / T-score (-2.4) / Z-score (-0.4) Findings are suggestive of osteopenia with a high fracture risk. Left Femur Total: g/cm2 (0.689) / T-score (-2.1) / Z-score (-0.7) Left Femoral Neck: g/cm2 (0.562) / T-score (-2.6) / Z-score (-0.9) Right Femur Total: g/cm2 (0.810) / T-score (-1.1) / Z-score (0.3) Right Femoral Neck: g/cm2 (0.6-2) / T-score (-2.0) / Z-score (-0.4) The T-Scores on the most recent prior examination were: Lumbar Spine (L1-L4): There has been worsening of bone density since the previous examination. Left Femur Total: which represents a worsening of 8.3%. Right Femur Total: which represents a worsening of 1.6%. BD/Dexa Bone Density Study IMPRESSION: The patient is considered osteoporotic as outlined below according to World Bradley Organization (WHO) criteria with a high fracture risk. There has been worsening of bone density since the previous examination. Reference Information: The T-score is the number of standard deviations above or below the standard which is normal for young adults at their peak bone mineral density. The World Health Organization (WHO) interprets the T-scores as follows: Above -1 Normal bone density Between -1 and -2.5 Osteopenia Equal to / or below -2.5 Osteoporosis As a practical clinical guideline, osteopenia may be graded as follows: Mild -1 through -1.5 Moderate -1.6 through -2.0 Severe -2.1 through -2.4 The Z-score is the number of standard deviations above or below age-matched controls. A Z-score of less than -1.5 would be considered abnormal. References: 1. NIH Osteoporosis and Related Bone Diseases www osteo.org 2. International Society for Clinical Densitometry www iscd.org 3. National Osteoporosis Foundation www nof.org Electronically Signed: Charles Santillan MD at 11:04 EST ,
== END | disposition home or self-care (01) ==
LOC: OPBD 12:30
PROVIDERS: PCP Family Medicine; Referring Provider Family Medicine; Visit Provider Family Medicine
DX: Z00.00 Encounter for general adult medical examination without abnormal findings (principal); Z12.31 Encounter for screening mammogram for malignant neoplasm of breast; Z78.0 Asymptomatic menopausal state
CPT/HCPCS: 77063; 77067; 77080

== ENCOUNTER 2023-06-18 14:30 | Outpatient (RCR) | payer MEDICARE, SELFPAY ==
--- NOTE | 2023-06-06 14:42 | HP.PTEVAL ---
Patient's Visit Information Visit Information Visit Information: LEILANI CHILEL is a 67 year old F referred to Physical Therapy by Dr. Prem Hummel MD with a diagnosis of L shoulder pain. Date of Evaluation: 06/06/23 Physical Therapist: Mac Mata, PT, ATC Visit Plan Frequency: 2x /Week Duration: 1-2 weeks Subjective Subjective: Pt reports she injured her L shoulder approximately 8-10 weeks ago. Pt reports she was washing quilts at the time when she experienced significant pain. Pt notes she then reinjured her L shoulder 4 weeks ago when she slipped on the steps and caught herself with her L UE. Pt reports this resulted in very severe pain in her R UE that extended down her L UE. Pt reports that pain is gone now, but she still has pain in her L shoulder that extends down to her L lateral mid humerus region. Pt is R hand dominant. Pt reports having no recent x-rays on L shoulder. Pt reports she has sleep difficulty at this time secondary to pain. Pt reports she is retired at this time. Pt reports she has difficulty with donning and doffing her jacket secondary to pain. 0/10 pain while sitting here at rest, 8/10 pain at worst Pain L shoulder pain: Pain Intensity (Out of 10): 0 Pain Intensity Range: 8 Objective Objective: Neuro: B UE sensation is WNL to light touch. B bicipital reflex= 2/3 Palpation: Pt is very sore along the distribution of the supraspinatus tendon. No obvious deformity noted. ROM: R shoulder flex= 160, abd= 125, ER= 20, IR= WNL; L shoulder flex= 130, abd= 55, ER= 0, IR=WNL compared bilaterally MMT: R shoulder flex= 11, abd= 22, ER= 17, IR= 16 #F; L shoulder flex= 10, abd= 17, ER= 15, IR= 15 #F Special tests: Pos empty can Balance/Special Test Scores Quick DASH Score: 56.8175 Goals Goal 1:: I with HEP in 3-4 visits Goal Time Frame: 2-4 Weeks Rehabilitation Potential Physical Therapy Diagnosis: Pt has L shoulder pain, weakness, and limited ROM secondary to L shoulder impingement. Rehabilitation Potential: Good Anticipated Interventions Patient/Client Instruction: Educate patient on: Condition and Plan of Care For the Purpose of:: To improve self management Therapeutic Exercise to Include: Strength training, Flexibilty training, Passive ROM, Active ROM and Scapular Strength/Stabilization For the Purpose of:: To decrease pain, To increase ROM and To improve muscle performance and motor function Cryotherapy (ice pack, ice massage): Yes For the Purpose of:: To decrease pain Text: Thank you for the opportunity to evaluate your patient. For Medicare and Medicare HMO plans, please review the plan of care and approve it. It will need to be FAXED BACK to us at [phone] for Medicare purposes. For Medicare only, by signing this I certify the plan of care. Please let me know if there are questions or concerns regarding this plan of care. Physician Signature: Date:
== END 2023-06-18 19:00 | disposition home or self-care (01) ==
LOC: PT 14:30
PROVIDERS: PCP Family Medicine; Referring Provider Family Medicine; Visit Provider Family Medicine
DX: S43.402D Unspecified sprain of left shoulder joint, subsequent encounter (principal)
CPT/HCPCS: 97110; 97161

== ENCOUNTER → 2023-07-30 | Outpatient (CLI) | payer MEDICARE, SELFPAY ==
[2023-07-30 12:59] LABS: Anion Gap 5 (5-15); BUN 10 mg/dL (7-18); BUN/Creat Ratio 14.6 RATIO (10-20); Calcium,Total 8.8 mg/dL (8.5-10.1); Chloride 110 mmol/L (98-107); Creatinine, Serum 0.68 mg/dL (0.55-1.02); EST Glomerular Filtration Rate 91 mL/min (>60); Est Glom Filt Rate - Afr Amer 110 mL/min (>60); Glucose 101 mg/dL (74-106); Potassium 3.9 mmol/L (3.5-5.1); Sodium Level 141 mmol/L (136-145)
== END | disposition home or self-care (01) ==
LOC: MFPLAB 10:40
PROVIDERS: PCP Family Medicine; Visit Provider Family Medicine
DX: E66.9 Obesity, unspecified (principal)
CPT/HCPCS: 36415; 80048; 83036

== ENCOUNTER 2023-08-26 09:55 | Outpatient (RCR) | payer SELFPAY | END 2023-09-14 23:59 | LOC: NS 09:55 | PROVIDERS: PCP Family Medicine; Referring Provider Family Medicine; Visit Provider Family Medicine | DX: Z71.3 Dietary counseling and surveillance (principal); E66.9 Obesity, unspecified; Z68.34 Body mass index [BMI] 34.0-34.9, adult | CPT/HCPCS: 97802 ==

== ENCOUNTER 2023-09-22 10:58 | Outpatient (RCR) | payer SELFPAY | END 2023-10-15 23:59 | LOC: NS 10:58 | PROVIDERS: PCP Family Medicine; Referring Provider Family Medicine; Visit Provider Family Medicine | DX: Z71.3 Dietary counseling and surveillance (principal); E66.9 Obesity, unspecified; Z68.34 Body mass index [BMI] 34.0-34.9, adult | CPT/HCPCS: 97803 ==

== ENCOUNTER → 2023-12-03 | Outpatient (CLI) | payer MEDICARE, SELFPAY ==
[2023-12-03 13:11] LABS: ALB/GLOB Ratio 1.1 RATIO (0.9-2.4); AST(SGOT) 15 U/L (15-37); Alanine Aminotransfer ALT/SGPT 16 U/L (13-56); Albumin, Serum 3.5 g/dL (3.2-5.0); Alkaline Phosphatase 95 U/L (45-117); Anion Gap 6 (5-15); BUN 13 mg/dL (7-18); BUN/Creat Ratio 18.5 RATIO (10-20); Calcium,Total 9.4 mg/dL (8.5-10.1); Chloride 109 mmol/L (98-107); EST Glomerular Filtration Rate 88 mL/min (>60); Est Glom Filt Rate - Afr Amer 107 mL/min (>60); Globulin 3.3 g/dL (2.2-4.2); Glucose 105 mg/dL (74-106); Protein, Total 6.8 g/dL (6.4-8.2); Sodium Level 140 mmol/L (136-145)
== END | disposition home or self-care (01) ==
LOC: MFPLAB 10:39
PROVIDERS: PCP Family Medicine; Visit Provider Family Medicine
DX: E66.9 Obesity, unspecified (principal)
CPT/HCPCS: 36415; 80053; 84443

== ENCOUNTER → 2024-02-18 | Outpatient (CLI) | payer MEDICARE, SELFPAY ==
--- NOTE | 2024-02-18 16:20 | RAD_ITS ---
HISTORY: Left shoulder pain. TECHNIQUE: XR Shoulder Min 2 Views. COMPARISON: None. FINDINGS: BONES : No acute fracture identified. Mineralization unremarkable. JOINTS: No dislocation. Mild degenerative change. SOFT TISSUES: Left lung apex clear. RAD/Shoulder min 2 Views IMPRESSION: No acute fracture or dislocation identified in the left shoulder. Mild osteoarthritis. Electronically Signed: Meryl Petit MD at 9:09 EST ,
== END | disposition home or self-care (01) ==
LOC: MTRAD 16:17
PROVIDERS: PCP Family Medicine; Referring Provider Family Medicine; Visit Provider Family Medicine
DX: M25.512 Pain in left shoulder (principal)
CPT/HCPCS: 73030

== ENCOUNTER → 2024-07-21 | Outpatient (CLI) | payer MEDICARE, SELFPAY ==
--- NOTE | 2024-07-21 10:32 | RAD_ITS ---
PROCEDURE: HIPS B/L MIN 2 VIEWS W/ PELVIS 07/21/2024 REASON FOR EXAM: HIP PAIN- BOTH TECHNIQUE: AP pelvis, two views right hip and two views left hip, 5 total images COMPARISON: None available FINDINGS: Symmetric appearing SI joints and pubic symphysis appear within limits. The right and left hips appear within limits. Joint spaces appear within limits. No fracture or dislocation. RAD/Hips B/L min 2 views w/ Pelvis IMPRESSION: Study appears within limits. Reading Location: [id number]
== END | disposition home or self-care (01) ==
LOC: MTRAD 10:30
PROVIDERS: PCP Family Medicine; Referring Provider Family Medicine; Visit Provider Family Medicine
DX: M25.559 Pain in unspecified hip (principal)
CPT/HCPCS: 73521

== ENCOUNTER → 2025-01-21 | Outpatient (CLI) | payer MEDICARE, SELFPAY ==
--- NOTE | 2025-01-21 14:48 | BI_ITS ---
EXAM: SCRN MAMM (CAD)W/SHAHNAZ BILAT DATE: 01/21/2025 CLINICAL HISTORY: F, Age 69 y/o , SCREEN TECHNIQUE: Procedure Code: [id number] Modality: MG Procedure: SCRN MAMM (CAD)W/SHAHNAZ BILAT COMPARISON: Prior exam(s) dated 02/20/2023. FINDINGS: TISSUE DENSITY: The breasts are almost entirely fatty. Bilateral Breast Mammographic Findings: No significant masses, calcifications or other abnormalities are identified. Benign-appearing round microcalcifications are seen in both breasts. BI/SCRN MAMM (CAD)W/SHAHNAZ BILAT IMPRESSION: Benign screening mammogram OVERALL FINAL ASSESSMENT BI-RADS 2: BENIGN RECOMMENDATION: Routine annual follow-up in 1 Year Additional Recommendation none A letter with findings and recommendations will be mailed to the patient. Reading Location: [id number]
--- OUTSIDE RECORDS SUMMARY | 2025-01-21 16:41 | XMS RPT_ITS | CCD ---
Author Organization [facility] Care Team Providers Care Continuous Improvement Analyst Name Role Phone Dr. Prem Hummel Primary Care Provider Dr. Prem Hummel Referring Provider [phone] Dr. Teo Gipson Attending Provider Dr. Prem Hummel Primary Care Provider [phone] Dhruv Zhou Attending Provider MEMO Garcia Referring Provider Estephanie AYALA, Dr. Amaro Primary Care Provider [phone] Estephanie AYALA, Dr. Amaro Attending Provider [phone] Estephanie AYALA, Dr. Amaro Referring Provider [phone] Prem Hummel Referring Unavailable Hummel, Prem Attending Unavailable Hummel, Prem Primary Care Unavailable Hummel, Prem Referring Unavailable Hummel, Prem Attending Unavailable Hummel, Prem Primary Care Unavailable Hummel, Prem Referring Unavailable Hummel, Prem Attending Unavailable Hummel, Prem Primary Care Unavailable Hummel, Prem Referring Unavailable Hummel, Prem Attending Unavailable Hummel, Prem Primary Care Unavailable Allergies Allergy Classification Reported Allergen(s) Allergy Type Date of Onset Reaction(s) Facility (3 sources) Corticosteroids Propensity to adverse reactions 06-07-19 15 Other [facility] Work Phone: (8 sources) cyclobenzaprine; Translations: [cyclobenzaprine HCl] Drug Allergy 06-07-19 15 Other [facility] (4 sources) Glucocorticoid Receptor Agonists Propensity to adverse reactions 02-26-20 22 NEEDS FOLLOW-UP [facility] (1 source) Corticosteroids Drug allergy (disorder) 02-26-20 22 [facility] Repository Problems Active Problems Problem Classification Problem Date Documented Da te Episodic/Chronic Other screening for suspected conditions (not mental disorders or infectious disease) (1 source) Encounter for screening mammogram for malignant neoplasm of breast; Translations: [Encounter for screening mammogram for malignant neoplasm of breast] Onset: 01-16-2025 Episodic Past or Other Problems Problem Classification Problem Date Documented Da te Episodic/Chronic Other non-traumatic joint disorders (1 source) Pain in unspecified hip; Translations: [Pain in unspecified hip] Onset: 07-28-2024 Episodic Other non-traumatic joint disorders (1 source) Pain in left shoulder; Translations: [Pain in left shoulder] Onset: 03-23-2024 Episodic Results Test Name Value Interpretation Reference Range Facility Hips B/L min 2 views w/ Pelv pastor 07-21-2024 Hips B/L min 2 views w/ Pelvis [facility] Imaging Services [address] [place], [place] [id number] Hips B/L min 2 views w/ Pelvis MR#: [id number] Acct: [id number] Name: LEILANI CHILEL Rep #: [id number] : 1955 F 69 From: Neil Romero MD PCP: Dr. Prem Hummel MD Status: REG CLI Study: Hips B/L min 2 views w/ Pelvis Date of Exam: 0 07/21/24 Exam# [id number] Ordering Dr: Prem Hummel MD PROCEDURE: HIPS B/L MIN 2 VIEWS W/ PELVIS 07/21/2024 REASON FOR EXAM: HIP PAIN- BOTH TECHNIQUE: AP pelvis, two views right hip and two views left hip, 5 total images COMPARISON: None available FINDINGS: Symmetric appearing SI joints and pubic symphysis appear within limits. The right and left hips appear within limits. Joint spaces appear within limits. No fracture or dislocation. RAD/Hips B/L min 2 views w/ Pelvis IMPRESSION: Study appears within limits. Reading Location: [facility] CC: Dr. Prem Hummel MD Children'S Program Coordinator: Signed Normal [facility] Shoulder min 2 Viewson 02-17 Shoulder min 2 Views [facility] Imaging Services [address] [place], [place] [id number] Shoulder min 2 Views MR#: [id number] Acct: [id number] Name: LEILANI CHILEL Rep #: [id number] : 1955 F 68 From: Meryl ortez MD PCP: Dr. Prem Hummel MD Status: REG CLI Study: Shoulder min 2 Views Date of Exam: 02/18/24 Exam# [id number] Ordering Dr: Prem Hummel MD -[id number] HISTORY: Left shoulder pain. TECHNIQUE: XR Shoulder Min 2 Views. COMPARISON: None. FINDINGS: BONES : No acute fracture identified. Mineralization unremarkable. JOINTS: No dislocation. Mild degenerative change. SOFT TISSUES: Left lung apex clear. RAD/Shoulder min 2 Views IMPRESSION: No acute fracture or dislocation identified in the left shoulder. Mild osteoarthritis. Electronically Signed: Meryl Petit MD at 9:09 EST Reading Location ID and State: [facility] / [place] Tel , Service support , CC: Dr. Prem Hummel MD Children'S Program Coordinator: Signed Normal [facility] Basophil percentageOrdered B y: Dr. Hummel on 09-05-2022 Chloride [Moles/Vol] 109 mmol/L 98-107 [facility] Cholesterol [Mass/Vol] 193 mg/dL <200 [facility] Comment on above: <200 mg/dL Desirable 200-240 mg/dL Borderline >240 mg/dL High Risk Glucose [Mass/Vol] 94 mg/dL 74-106 [facility] Potassium [Moles/Vol] 4.0 mmol/L 3.5-5.1 [facility] Sodium [Moles/Vol] 141 mmol/L 136-145 [facility] Triglyceride [Mass/Vol] 117 mg/dL <[address] [facility] [address] [facility] Comment on above: The drugs N-Acetylcy steine and Metamizole may falsely depress this assay.Serum Triglycerides Reference Interval Normal <150 mg/dL Borderline high 150 - 199 mg/dL High 200 - 499 mg/dL Very High > or = 500 mg/dL Laboratory - Chemistry and C hemistry - challengeOrdered By: Dr. Hummel on 09-05-2022 CO2 [Moles/Vol] 27.0 mmol/L 21.0-32.0 [facility] Urea nitrogen/Creatinine [Mass ratio] 21.2 mg/mg 10-20 [facility] No Panel InformationOrdered By: Dr. Hummel on 09-05-2022 Estimated GFR (MDRD) Amer 125 mL/min >60 [facility] Comment on above: GFR Calc Estimated GFR (MDRD) Non-Af Amer 103 mL/min >60 [facility] Comment on above: Non- GFR Calc Serum or plasma calcium angie urement (mass/volume)Ordered By: Dr. Hummel on 09-05-2022 Calcium [Mass/Vol] 8.8 mg/dL 8.5-10.1 [facility] Serum or plasma cholesterol in HDL measurement (mass/volume)Ordered By: Dr. Hummel on 09-05-2022 Cholesterol in HDL [Mass/Vol] 81 mg/dL >40 [facility] Comment on above: The drugs N-Acetylcy steine and Metamizole may falsely depress this assay. Reference Range HDL <40 mg/dL Low HDL Cholesterol HDL >or= 60 mg/dL High HDL Cholesterol Serum or plasma cholesterol in VLDL measurement (mass/volume)Ordered By: Dr. Hummel on 09-05-2022 Cholesterol in VLDL [Mass/Vol] 23 mg/dL 5-40 [facility] Serum or plasma creatinine m easurement (mass/volume)Ordered By: Dr. Hummel on 09-05-2022 Creatinine [Mass/Vol] 0.61 mg/dL 0.55-1.02 [facility] Comment on above: The validity of the calculated GFR & GFRAA in patients over 70 years has not been determined. Clinical correlation is essential. Serum or plasma low density lipoprotein (LDL) cholesterol measurement (mass/volume)Ordered By: Dr. Hummel on 09-05-2022 Cholesterol in LDL [Mass/Vol] 89 mg/dL 0-130 [facility] Serum or plasma urea nitroge n measurement (mass/volume)Ordered By: Dr. Hummel on 09-05-2022 Urea nitrogen [Mass/Vol] 13 mg/dL 7-18 [facility] Thin prep Papanicolaou smear with manual screeningOrdered By: Dr. Hummel on 09-05-2022 Thin prep Papanicolaou smear with manual screening 5 5-15 [facility] Basophil percentageOrdered B y: Ty White on 06-06-2022 Chloride [Moles/Vol] 108 mmol/L 98-107 [facility] Glucose [Mass/Vol] 85 mg/dL 74-106 [facility] Potassium [Moles/Vol] 4.0 mmol/L 3.5-5.1 [facility] Sodium [Moles/Vol] 143 mmol/L 136-145 [facility] WBC (Bld) [#/Vol] 3.4 10*3/uL 4.4-11.0 [facility] Blood erythrocytes count (nu mber/volume)Ordered By: Ty White on 06-06-2022 RBC (Bld) [#/Vol] 4.56 10*6/uL 4.2-5.4 [facility] Blood hemoglobin measurement (mass/volume)Ordered By: Ty White on 06-06-2022 Hemoglobin (Bld) [Mass/Vol] 13.6 g/dL 12.0-15.0 [facility] Blood platelet mean volumeOr dered By: Ty White on 06-06-2022 Platelet mean volume (Bld) [Entitic vol] 9.6 fL 6.2-12.0 [facility] Determination of erythrocyte mean corpuscular volume (MCV)Ordered By: Ty White on 06-06-2022 MCV (RBC) [Entitic vol] 90.4 fL 81-99 [facility] Hematocrit Auto (Bld) [Volum e fraction]Ordered By: Ty White on 06-06-2022 Hematocrit (Bld) [Volume fraction] 41.2 % 37-47 [facility] Laboratory - Chemistry and C hemistry - challengeOrdered By: Ty White on 06-06-2022 CO2 [Moles/Vol] 30.0 mmol/L 21.0-32.0 [facility] Urea nitrogen/Creatinine [Mass ratio] 17.4 mg/mg 10-20 [facility] Laboratory - Hematology and Cell countsOrdered By: Ty White on 06-06-2022 Erythrocyte distribution width (RBC) [Entitic vol] 41.5 fL 35.1-43.9 [facility] Erythrocyte distribution width (RBC) [Ratio] 12.7 % 11.6-14.6 [facility] MCH (RBC) [Entitic mass] 29.8 pg 27.0-32.0 [facility] MCHC Auto (RBC) [Mass/Vol]Or dered By: Ty White on 06-06-2022 MCHC (RBC) [Mass/Vol] 33.0 g/dL 32-36 [facility] No Panel InformationOrdered By: Ty White on 06-06-2022 Estimated GFR (MDRD) Amer 100 mL/min >60 [facility] Comment on above: GFR Calc Estimated GFR (MDRD) Non-Af Amer 83 mL/min >60 [facility] Comment on above: Non- GFR Calc Platelets bldOrdered By: Ricardo White on 06-06-2022 Platelets (Bld) [#/Vol] 293 10*3/uL 150-450 [facility] Serum or plasma calcium angie urement (mass/volume)Ordered By: Ty White on 06-06-2022 Calcium [Mass/Vol] 9.2 mg/dL 8.5-10.1 [facility] Serum or plasma creatinine m easurement (mass/volume)Ordered By: Ty White on 06-06-2022 Creatinine [Mass/Vol] 0.74 mg/dL 0.55-1.02 [facility] Comment on above: The validity of the calculated GFR & GFRAA in patients over 70 years has not been determined. Clinical correlation is essential. Serum or plasma urea nitroge n measurement (mass/volume)Ordered By: Ty White on 06-06-2022 Urea nitrogen [Mass/Vol] 13 mg/dL 7-18 [facility] Thin prep Papanicolaou smear with manual screeningOrdered By: Ty White on 06-06-2022 Thin prep Papanicolaou smear with manual screening 5 5-15 [facility] Basophil percentageon 2021 Chloride [Moles/Vol] 108 mmol/L 98-107 [facility] Work Phone: Cholesterol [Mass/Vol] 197 mg/dL <200 [facility] Work Phone: Comment on above: <200 mg/dL Desirable 200-240 mg/dL Borderline >240 mg/dL High Risk Glucose [Mass/Vol] 90 mg/dL 74-106 [facility] Work Phone: Potassium [Moles/Vol] 3.9 mmol/L 3.5-5.1 [facility] Work Phone: Sodium [Moles/Vol] 142 mmol/L 136-145 [facility] Work Phone: Triglyceride [Mass/Vol] 113 mg/dL <[address] [facility] Work Phone: Comment on above: The drugs N-Acetylcy steine and Metamizole may falsely depress this assay.Serum Triglycerides Reference Interval Normal <150 mg/dL Borderline high 150 - 199 mg/dL High 200 - 499 mg/dL Very High > or = 500 mg/dL Laboratory - Chemistry and C hemistry - challengeon 11-29-2021 CO2 [Moles/Vol] 28.0 mmol/L 21.0-32.0 [facility] Work Phone: Urea nitrogen/Creatinine [Mass ratio] 17.3 mg/mg 10-20 [facility] Work Phone: No Panel Informationon 11-29 Estimated GFR (MDRD) Amer 120 mL/min >60 [facility] Work Phone: Comment on above: GFR Calc Estimated GFR (MDRD) Non-Af Amer 99 mL/min >60 [facility] Work Phone: Comment on above: Non- GFR Calc Serum or plasma calcium angie urement (mass/volume)on 11-29-2021 Calcium [Mass/Vol] 8.8 mg/dL 8.5-10.1 [facility] Work Phone: Serum or plasma cholesterol in HDL measurement (mass/volume)on 11-29-2021 Cholesterol in HDL [Mass/Vol] 83 mg/dL >40 [facility] Work Phone: Comment on above: The drugs N-Acetylcy steine and Metamizole may falsely depress this assay. Reference Range HDL <40 mg/dL Low HDL Cholesterol HDL >or= 60 mg/dL High HDL Cholesterol Serum or plasma cholesterol in VLDL measurement (mass/volume)on 11-29-2021 Cholesterol in VLDL [Mass/Vol] 23 mg/dL 5-40 [facility] Work Phone: Serum or plasma creatinine m easurement (mass/volume)on 11-29-2021 Creatinine [Mass/Vol] 0.64 mg/dL 0.55-1.02 [facility] Work Phone: Comment on above: The validity of the calculated GFR & GFRAA in patients over 70 years has not been determined. Clinical correlation is essential. Serum or plasma low density lipoprotein (LDL) cholesterol measurement (mass/volume)on 11-29-2021 Cholesterol in LDL [Mass/Vol] 91 mg/dL 0-130 [facility] Work Phone: Serum or plasma urea nitroge n measurement (mass/volume)on 11-29-2021 Urea nitrogen [Mass/Vol] 11 mg/dL 7-18 [facility] Work Phone: Thin prep Papanicolaou smear with manual screeningon 11-29-2021 Thin prep Papanicolaou smear with manual screening 6 -15 [facility] Work Phone: Basophil percentageon 2021 Chloride [Moles/Vol] 107 mmol/L 98-107 [facility] Work Phone: Cholesterol [Mass/Vol] 184 mg/dL <200 [facility] Work Phone: Comment on above: <200 mg/dL Desirable 200-240 mg/dL Borderline >240 mg/dL High Risk Glucose [Mass/Vol] 104 mg/dL 74-106 [facility] Work Phone: Comment on above: Fasting Glucose resu lt from 100 to 125 mg/dL suggests IMPAIRED HOMEOSTASIS per A.D.A. criteria. Potassium [Moles/Vol] 4.2 mmol/L 3.5-5.1 [facility] Work Phone: Sodium [Moles/Vol] 140 mmol/L 136-145 [facility] Work Phone: Triglyceride [Mass/Vol] 114 mg/dL [facility] Work Phone: Comment on above: The drugs N-Acetylcy steine and Metamizole may falsely depress this assay.Serum Triglycerides Reference Interval Normal <150 mg/dL Borderline high 150 - 199 mg/dL High 200 - 499 mg/dL Very High > or = 500 mg/dL Laboratory - Chemistry and C hemistry - challengeon 05-30-2021 CO2 [Moles/Vol] 27.0 mmol/L 21.0-32.0 [facility] Work Phone: Urea nitrogen/Creatinine [Mass ratio] 16.5 mg/mg 10-20 [facility] Work Phone: No Panel Informationon 05-30 Estimated GFR (MDRD) Amer 103 mL/min >60 [facility] Work Phone: Comment on above: GFR Calc Estimated GFR (MDRD) Non-Af Amer 85 mL/min >60 [facility] Work Phone: Comment on above: Non- GFR Calc Serum or plasma calcium angie urement (mass/volume)on 05-30-2021 Calcium [Mass/Vol] 9.0 mg/dL 8.5-10.1 [facility] Work Phone: Serum or plasma cholesterol in HDL measurement (mass/volume)on 05-30-2021 Cholesterol in HDL [Mass/Vol] 77 mg/dL [facility] Work Phone: Comment on above: The drugs N-Acetylcy steine and Metamizole may falsely depress this assay. Reference Range HDL <40 mg/dL Low HDL Cholesterol HDL >or= 60 mg/dL High HDL Cholesterol Serum or plasma cholesterol in VLDL measurement (mass/volume)on 05-30-2021 Cholesterol in VLDL [Mass/Vol] 23 mg/dL 5-40 [facility] Work Phone: Serum or plasma creatinine m easurement (mass/volume)on 05-30-2021 Creatinine [Mass/Vol] 0.73 mg/dL 0.55-1.02 [facility] Work Phone: Comment on above: The validity of the calculated GFR & GFRAA in patients over 70 years has not been determined. Clinical correlation is essential. Serum or plasma low density lipoprotein (LDL) cholesterol measurement (mass/volume)on 05-30-2021 Cholesterol in LDL [Mass/Vol] 84 mg/dL 0-130 [facility] Work Phone: Serum or plasma urea nitroge n measurement (mass/volume)on 05-30-2021 Urea nitrogen [Mass/Vol] 12 mg/dL 7-18 [facility] Work Phone: Thin prep Papanicolaou smear with manual screeningon 05-30-2021 Thin prep Papanicolaou smear with manual screening 6 5-15 [facility] Work Phone: Vital Signs Date Time Vital Sign Value Performing Clinician Faci lity 02-20-2023 12:43-0500 Body height 168.[address] [facility] Encounters Encounter Date Encounter Type Care Provider Facility Start: 01-21-2025 ambulatory Prem Hummel Facility:[facility] Start: 07-21-2024 End: 07-21-[address] Prem Hummel MD Work Phone: [facility] Work Phone: Start: 07-21-2024 End: 07-21-[address] Prem Hummel MD -Radiology, [place] Work Phone: Start: 07-21-2024 End: 07-21-2024 ambulatory Prem Hummel Facility:[facility] Start: 02-26-2024 ambulatory Prem Hummel Facility:[facility] Start: 02-18-2024 End: 02-18-2024 ambulatory Prem Hummel Facility:[facility] Start: 02-20-2023 End: 02-20-2023 ambulatory [facility] Work Phone: Start: 02-20-2023 End: 02-20-2023 Patient encounter procedure [facility]-Outpatient Bone Densitometry Work Phone: Start: 09-05-2022 End: 09-05-[address] Prem Hummel Work Phone: [facility] Work Phone: Start: 09-05-2022 End: 09-05-[address] Prem Hummel Work Phone: [facility] Start: 06-06-2022 End: 06-06-2022 Non-patient / Non-visit Dr. Prem Hummel Work Phone: [facility] Start: 06-06-2022 End: 06-06-[address] Prem Hummel Work Phone: [facility] Work Phone: Start: 06-06-2022 End: 06-06-[address] Prem Hummel Work Phone: [facility]-Pulmonary Services/Neurology Start: 02-08-2022 End: 02-08-2022 Patient encounter procedure [facility] - [facility] Start: 11-29-2021 End: 11-29-[address] Prem Hummel Work Phone: [facility] Work Phone: Start: 11-29-2021 End: 11-29-[address] Prem Hummel Work Phone: [facility] Start: 09-26-2021 End: 09-26-[address] Prem Hummel Work Phone: [facility] Start: 05-30-2021 End: 05-30-2021 Patient encounter procedure [facility] Start: 03-15-2021 End: 03-15-2021 Patient encounter procedure [facility]-Laboratory, Specimen Start: 02-09-2021 End: 02-09-2021 Discharged Recurring [facility]-Physical Therapy Procedures Date Procedure Procedure Detail Performing Clinician Start: 07-21-2024 Plain x-ray of pelvi s and lower extremity Dr. Prem Hummel MD Work Phone: Start: 02-20-2023 Dual energy X-ray absorptiometry Start: 02-20-2023 Screening mammography Start: 02-08-2022 MRI of joint of lowe r extremity Start: 09-26-[address] Gale Hummel Work Phone: Start: 09-26-2021 Radiologic examinati on of knee Dr. Prem Hummel Work Phone: Payers Date Payer Category Payer Self-pay [id number] 2023 Medicare [id number] 2005 Unknown [id number] Unknown [id number] Unknown [id number] [id number] [id number] Unknown [id number] [id number] [id number] Unknown [id number] 2.16.8 [id number] Unknown [id number] 2.16.8 [id number] Social History Date Type Detail Facility Start: 06-06-2014 End: 06-06-2014 Tobacco smoking status NHIS Unknown if ever smoked [facility] Start: 1955 Sex Assigned At Female [facility] Start: 06-06-2014 Tobacco smoking stat us NHIS Never smoked tobacco (finding) [facility] Radiology Diagnostic study note 07-22-2024 Note Date & Type Note Facility 07-22-2024 Radiology Diagnostic study note [facility] Imaging Services [address] [place] [address] Hips B/L min 2 views w/ Pelvis MR#: [id number] Acct: [id number] Name: LEILANI CHILEL Rep #: [id number] : 1955 F 69 From: Matt Romero MD PCP: Dr. Prem Hummel MD Status: REG C LI Study:Hips B/L min 2 views w/ Pelvis Date of Exam: 07/21/24 Exam# [id number] Ordering Dr: Prem Hummel MD PROCEDURE: HIPS B/L MIN 2 VIEWS W/ PELVIS 07/21/2024 REASON FOR EXAM: HIP PAIN- BOTH TECHNIQUE: AP pelvis, two views right hip and two views left hip, 5 total images COMPARISON: None available FINDINGS: Symmetric appearing SI joints and pubic symphysis appear within limits. The right and left hips appear within limits. Joint spaces appear within limits. No fracture or dislocation. RAD/Hips B/L min 2 views w/ Pelvis IMPRESSION: Study appears within limits. Reading Location: [id number] CC: Dr. Prem Hummel MD ~ Children'S Program Coordinator: Signed [facility] SARS-CoV RNA RUDY+probe Ql (Unsp spec) 03-15-2021 Note Date & Type Note Facility 03-15-2021 SARS-CoV RNA RUDY+ probe Ql (Unsp spec) [facility] Work Phone: Coronavirus 2019 (RUDY) March 15, 2021 5:50pm Detected Not Detected Patients who have a positive COVID-19 test result may nowhave treatment options. Treatment options are available forpatients with mild to moderate symptoms and forhospitalized patients. Visit our website [email or web address] for resources andinformation.This nucleic acid amplification test was developed and itsperformance characteristics determined by [facility]. Nucleic acid amplification tests include RT-PCR and TMA. This test has not been FDA cleared orapproved. This test has been authorized by FDA under anEmergency Use Authorization (EUA). This test is onlyauthorized for the duration of time the declaration thatcircumstances exist justifying the authorization of theemergency use of in vitro diagnostic tests for detection [id number] virus and/or diagnosis of COVID-19 infectionunder section 564(b)(1) of the Act, 21 U.S.C. 360bbb-3(b)(1), unless the authorization is terminated or revokedsooner.When diagnostic testing is negative, the possibility of afalse negative result should be considered in the contextof a patient's recent exposures and the presence ofclinical signs and symptoms consistent with COVID-19. Anindividual without symptoms of COVID-19 and who is notshedding SARS-CoV-2 virus would expect to have a negative(not detected) result in this assay. Comment on above: Patients who have a positive COVID-19 test result may nowhave treatment options. Treatment options are available forpatients with mild to moderate symptoms and forhospitalized patients. Visit our website [email or web address] for resources andinformation.This nucleic acid amplification test was developed and itsperformance characteristics determined by [facility]. Nucleic acid amplification tests include RT-PCR and TMA. This test has not been FDA cleared orapproved. This test has been authorized by FDA under anEmergency Use Authorization (EUA). This test is onlyauthorized for the duration of time the declaration thatcircumstances exist justifying the authorization of theemergency use of in vitro diagnostic tests for detection [id number] virus and/or diagnosis of COVID-19 infectionunder section 564(b)(1) of the Act, 21 U.S.C. 360bbb-3(b)(1), unless the authorization is terminated or revokedsooner.When diagnostic testing is negative, the possibility of afalse negative result should be considered in the contextof a patient's recent exposures and the presence ofclinical signs and symptoms consistent with COVID-19. Anindividual without symptoms of COVID-19 and who is notshedding SARS-CoV-2 virus would expect to have a negative(not detected) result in this assay. Evaluation note Note Date & Type Note Facility Evaluation note No assessment information availa ble [facility] Work Phone: Reason for referral (narrative) Note Date & Type Note Facility Reason for referral (narrative) No reason for referral information available [facility] Work Phone: Chief Complaint and Reason for Visit Chief Complaint RT WRIST. RX HERE Chief Complaint X-Rays Chief Complaint KNEE PAIN Chief Complaint PRE OP EKG/LABWORK S CANNED PREOP Chief Complaint SCREENING Chief Complaint Admit Date BOTH HIPS- HIP PAIN July 21, 2024 10:30a m Summary Purpose Family History No Family History Records Found Advance Directives No Advanced Directives Records Found Additional Source Comments Goals (unrecognized section and content) Goals may be documented in a n alternate sectionGoals may be documented in an alternate sectionGoals may be documented in an alternate sectionGoals may be documented in an alternate sectionGoals may be documented in an alternate sectionGoals may be documented in an alternate sectionGoals may be documented in an alternate section Care Teams (unrecognized sec tion and content) Team Status: Active Member Role Status Dates Dr. Prem Hummel MD Family Provider Active Dr. Prem Hummel MD Primary Care Provider Active Team Status: Active Member Role Status Dates Dr. Prem Hummel MD Primary Care Provider Active Dr. Dhruv Zhou MD Attending Provider Active Ty IZQUIERDO PA-C Referring Provider Active Team Status: Inactive Member Role Status Dates Dr. Prem Hummel MD Primary Care Provider Active Ty IZQUIERDO PA-C Attending Provider, Referring Pr ovider Active Team Status: Inactive Member Role Status Dates Dr. Prem Hummel MD Primary Care Provider, Attending Provider Active Team Status: Inactive Member Role Status Dates Dr. Prem Hummel MD Primary Care Provi francesco, Attending Provider, Referring Provider Active Team Status: Inactive Member Role Status Dates Dr. Prem Hummel MD Primary Care Provider Active Start: July 21, 2024 End: July 21, 2024 Dr. Prem Hummel MD Attending Provider Active Start: July 21, 2024 End: July 21, 2024 Dr. Prem Hummel MD Referring Provider Active Start: July 21, 2024 End: July 21, 2024 INFORMATION SOURCE (unrecogn ized section and content) DATE CREATED AUTHOR 01/16/[address] [facility] FOR RECORDS PERTAINING TO PATIENTS WHO ARE OR HAVE BEEN ENROLLED IN A CHEMICAL DEPENDENCY/SUBSTANCEABUSE PROGRAM, SOME INFORMATION MAY BE OMITTED. This clinical summary was aggregated from multiple sources. Caution should be exercised in using it in the provision of clinical care. This summary normalizes information from multiple sources, and as a consequence, information in this document may materially change the coding, format and clinical context of patient data. In addition, data may be omitted in some cases. CLINICAL DECISIONS SHOULD BE BASED ON THE PRIMARY CLINICAL RECORDS. [facility]. provides no warranty or guarantee of the accuracy or completeness of information in this document.
== END | disposition home or self-care (01) ==
LOC: OPBI 14:48
PROVIDERS: PCP Family Medicine; Referring Provider Family Medicine; Visit Provider Family Medicine
DX: Z12.31 Encounter for screening mammogram for malignant neoplasm of breast (principal)
CPT/HCPCS: 77063; 77067